=== PATIENT | female | born 1960 | race Caucasian/White ===

== ENCOUNTER 2016-10-10 14:13 | Inpatient (IN) | payer MEDICAID ==
[2016-10-10] MEDS ORDERED: SODIUM CHLORIDE 0.9% 3 ML FLUSH FLUSH PRN (14:34)
[2016-10-10] MEDS ORDERED: REGULAR INSULIN 100 UNITS/ML - 3 ML VIAL IV ONE (14:35)
[2016-10-10] MEDS ORDERED: PANTOPRAZOLE 40 MG VIAL IV ONE (14:46)
--- NOTE | 2016-10-10 14:49 | EDPRACDOC ---
- General Information Information Source: Patient Mode Of Arrival: Ambulance - History of Present Illness Onset: last night Exact Onset of Symptoms: Unknown HPI: Patient has not been feeling well for a few days - states nausea/vomiting today , BS reading "high" on meter. Patient reports she uses an insulin pump without reduction of her sugars. Patient reports ongoing diarrhea which is chronic. Reports generalized abdominal pain. No fever. Reports "doesn't feel good". Symptoms Started: Reports: Gradually Weakness: Bilateral: Generalized Associated signs and symptoms:: Reports: GI Bleed, Diarrhea, Nausea, Vomiting <Bianka Constantino - Last Filed: 10/10/16 15:12> <Jeni Lim - Last Filed: 10/10/16 16:02> - General Information Chief Complaint: Generalized Weakness Stated Complaint: HYPERGLYCEMIA Time Seen by Provider: 10/10/16 14:22 Home Medications: Home Medications Ergocalciferol (Vitamin D2) [Vitamin D2] 50,000 unit PO SUMO PRN 11/17/12 Escitalopram Oxalate [Lexapro] 10 tab PO HS 11/17/12 Estrogens [Premarin] 0.3 mg PO HS 11/17/12 Insulin Pump Novolog 0 units SQ .CONTINUOUS 11/08/14 Oxycodone HCl/Acetaminophen [Percocet 10-325 mg Tablet] 1 tab PO Q6H PRN Loperamide HCl [Imodium] 2 mg PO DIR PRN 12/18/14 Nitroglycerin Sublingual Tab [NTG (NitroStat Sublingual Tab)] 0.4 mg SL Q5MX3 PRN 12/18/14 Alendronate Sodium [Fosamax] 70 mg PO .QMONDAY 06/03/16 Carvedilol [Coreg] 25 mg PO HS 06/03/16 Diclofenac Sodium [Voltaren 1% Topical Gel] 0 gm TOP QID PRN 06/03/16 Febuxostat [Uloric] 80 mg PO QAM 06/03/16 Losartan Potassium [Cozaar] 25 mg PO QAM 06/03/16 Polysorbate 80/Glycerin [Refresh Dry Eye Therapy Drops] 1 drop OU TID PRN Simvastatin [Zocor] 10 mg PO HS 06/03/16 Allergies/Adverse Reactions: Allergies Allergy/AdvReac Type Severity Reaction Status Date / Time duloxetine HCl Allergy Unknown Nausea/Vomi Verified 06/03/16 12:35 [From Cymbalta] ting NSAIDS (Non-Steroidal AdvReac Unknown See Verified 06/03/16 12:35 Anti-Inflamma Comments ED Past Medical History - History Reviewed Yes Nurses notes reviewed and agree except as marked - Patient Medical History Cardiac History: Reports: Coronary Artery Disease, Hypertension, Congestive Heart Failure, Heart Attack (2006), Cardiac Catheterization (2012?), CABG (2006 Quad), Hypercholesterolemia, Syncope GI/ History: Reports: Renal Disease (STAGE 3) Musculoskeletal History: Reports: Arthritis Psychological History: Denies: Depression Systemic History: Reports: Cancer, Anemia (Iron Deficit), Diabetes Surgical History: Reports: Cholecystectomy, CABG (2006 Quad), Cardiac Catheterization (2012?), Tonsillectomy/Adnoidectomy - Family Medical History Reports: Hypertension (Mother,Father,Brothers), Diabetes (Mother), Cancer ( BROTHER COLON CA), Stroke (Mother), Cardiac Disorders (Brother) - Social Medical History Smoking Status: Former smoker ETOH: None Substance Abuse: None Lives In: Home <Bianka Constantino - Last Filed: 10/10/16 15:12> EDM Review of Systems - Review of Systems ROS Negative Except as Marked: Yes All systems reviewed and were negative except as marked Constitutional: Fatigue, Weakness Eyes: No Symptoms Reported Ears: No Symptoms Reported Throat: No Symptoms Reported Nose: No Symptoms Reported Respiratory: No Symptoms Reported Cardiovascular: No Symptoms Reported Gastrointestinal: Diarrhea, Nausea, Pain, Vomiting Genitourinary: No Symptoms Reported Neurological: Weakness Musculoskeletal: No Symptoms Reported <Bianka Constantino - Last Filed: 10/10/16 15:12> - Physical Exam Constitutional: Alert (Awake), No apparent distress Oriented to: Time, Person, Place Last recorded Vital Signs: Last Vital Signs Temp 98.1 F 10/10/16 14:15 Pulse 89 10/10/16 14:39 Resp 18 10/10/16 14:39 BP 191/79 H 10/10/16 14:39 Pulse Ox 100 10/10/16 14:39 Oxygen Pulse Oxygen Saturation 100 O2 Device Room Air Oxygen Flow Rate Fraction of Inspired Oxygen ( FIO2) - HEENT Head: Normal ( normocephalic) Eye Exam: Normal (PERRL, EOMI, Sclera white) Oropharynx: Membranes Dry Tympanic Membrane: Normal Nose: No Symptoms Reported (septum midline) Neck: Normal (FROM, trachea at midline) - Respiratory/Cardiovascular Respiratory: Normal - CTA (BBS clear to auscultation without adventitious sounds ) Cardiovascular: Normal (RRR without murmur, gallop or rub) - GI Auscultation: Normal (NABS) Tenderness: Diffuse, Mild Ramirez's Sign: Negative Rectal Exam: Heme negative stool GI Comment: Gastroccult + - Musculoskeletal Back: Normal (Non-Tender) Extremities: Normal (Normal tone, Pulses 2+ No cyanosis or edema, FROM) - Integumentary Skin: Normal, Warm, Dry Lymphatics: Normal (no adenopathy) - Neurologic Memory Impaired: Normal Motor Function: Normal (Normal tone, Pulses 2+ No cyanosis or edema, FROM) Mood Description: Normal Thought: Coherent <Bianka Constantino - Last Filed: 10/10/16 15:12> - Physical Exam Last recorded Vital Signs: Last Vital Signs Temp 98.1 F 10/10/16 14:15 Pulse 93 10/10/16 15:17 Resp 18 10/10/16 15:17 BP 168/65 10/10/16 15:17 Pulse Ox 99 10/10/16 15:17 Oxygen Pulse Oxygen Saturation 99 O2 Device Room Air Oxygen Flow Rate Fraction of Inspired Oxygen ( FIO2) <Jeni Lim - Last Filed: 10/10/16 16:02> NIH Stroke Scale Initial Evaluation Level of Consciousness: Alert LOC- Question: Answers Both Correctly LOC Commands: Both Task Correctly Best Gaze: Normal Visual: No Visual Loss Facial Palsy: Normal Movement Motor Arm LEFT: No Drift Motor Arm RIGHT: No Drift Motor Leg LEFT: No Drift Motor Leg RIGHT: No Drift Sensory: Normal Best Language: No Aphasia Dysarthria: Normal Extinction and Inattention: No Abnormality (Neglect) <Bianka Constantino - Last Filed: 10/10/16 15:12> - Results 10/10/16 14:35 10/10/16 14:35 POC Capillary Glucose > 600 MG/DL (70-99) H* 10/10/16 14:24 Lab Results 10/10/16 14:24 POC Capillary Glucose > 600 H* <Bianka Constantino - Last Filed: 10/10/16 15:12> - Re-evaluation Re-evaluation 1 Re-evaluation Time: 16:00 (IMPROVED) - Results 10/10/16 14:35 10/10/16 14:35 WBC 10.7 xk/uL (3.8-10.8) 10/10/16 14:35 RBC 4.11 xM/uL (4.20-5.40) L 10/10/16 14:35 Hgb 11.9 g/dL (12.0-16.0) L 10/10/16 14:35 Hct 38.0 % (36-47) 10/10/16 14:35 MCV 92 fL (81-99) 10/10/16 14:35 MCH 29.0 pg (27-32) 10/10/16 14:35 MCHC 31.4 g/dl (33-36) L 10/10/16 14:35 RDW 14.6 % (11.5-14.5) H 10/10/16 14:35 Plt Count 216 xk/uL (130-400) 10/10/16 14:35 MPV 8.0 fL (7.4-10.4) 10/10/16 14:35 Neut % (Auto) 83.5 % (45-76) H 10/10/16 14:35 Lymph % (Auto) 9.3 % (17-44) L 10/10/16 14:35 [place] % (Auto) 6.5 % (3-10) 10/10/16 14:35 Eos % (Auto) 0.1 % (0-5) 10/10/16 14:35 Baso % (Auto) 0.6 % (0-2) 10/10/16 14:35 Absolute Neuts (auto) 8.88 xk/uL (1.7-8.2) H 10/10/16 14:35 Absolute Lymphs (auto) 0.96 xk/uL (0.65-4.75) 10/10/16 14:35 PT 10.1 SEC (9.2-11.2) 10/10/16 14:35 INR 1.0 10/10/16 14:35 APTT 23.3 SEC (22-35) 10/10/16 14:35 Puncture Site Left radial 10/10/16 14:34 pH 7.240 pH UNITS (7.35-7.45) L* 10/10/16 14:34 pCO2 24.0 mmHg (35-45) L 10/10/16 14:34 pO2 105.0 mmHg (80-100) H 10/10/16 14:34 HCO3 10.3 MMOL/L (22-26) L 10/10/16 14:34 Total CO2 11.0 MMOL/L (23-27) L 10/10/16 14:34 Base Excess -15.3 (+/- 2) L 10/10/16 14:34 FiO2 % 21 10/10/16 14:34 Specimen Drawn By Dp 10/10/16 14:34 Sodium 130 mEq/L (137-146) L 10/10/16 14:35 Potassium 5.0 mEq/L (3.5-5.1) 10/10/16 14:35 Chloride 91 mEq/L (98-107) L 10/10/16 14:35 Carbon Dioxide 9 mMOL/L (22-33) L* 10/10/16 14:35 BUN 39 MG/DL (7-17) H 10/10/16 14:35 Creatinine 2.30 MG/DL (0.52-1.04) H 10/10/16 14:35 Estimated GFR (MDRD) 22 mL/min (>=60) L 10/10/16 14:35 Glucose 821 MG/DL (70-99) H* 10/10/16 14:35 POC Capillary Glucose > 600 MG/DL (70-99) H* 10/10/16 14:24 Calculated Osmolality 300 MOs/Kg (270-290) H 10/10/16 14:35 Calcium 10.6 MG/DL (8.4-10.2) H 10/10/16 14:35 Total Bilirubin 0.8 MG/DL (0.2-1.3) 10/10/16 14:35 AST 31 IU/L (14-36) 10/10/16 14:35 ALT 41 IU/L (9-52) 10/10/16 14:35 Alkaline Phosphatase 108 IU/L (38-126) 10/10/16 14:35 Creatine Kinase 92 IU/L (30-134) 10/10/16 14:35 Total Protein 7.4 G/DL (6.3-8.2) 10/10/16 14:35 Albumin 4.8 G/DL (3.5-5.0) 10/10/16 14:35 Blood Type A POSITIVE 10/10/16 14:35 Antibody Screen Negative 10/10/16 14:35 Lab Results 10/10/16 10/10/16 10/10/16 14:35 14:35 14:35 WBC RBC Hgb Hct MCV MCH MCHC RDW Plt Count MPV Neut % (Auto) Lymph % (Auto) [place] % (Auto) Eos % (Auto) Baso % (Auto) Absolute Neuts (auto) Absolute Lymphs (auto) PT 10.1 INR 1.0 APTT 23.3 Puncture Site pH pCO2 pO2 HCO3 Total CO2 Base Excess FiO2 % Specimen Drawn By Sodium Potassium Chloride Carbon Dioxide BUN Creatinine Estimated GFR (MDRD) Glucose POC Capillary Glucose Calculated Osmolality Calcium Total Bilirubin AST ALT Alkaline Phosphatase Creatine Kinase 92 Total Protein Albumin Blood Type A POSITIVE Antibody Screen Negative 10/10/16 10/10/16 10/10/16 14:35 14:35 14:34 WBC 10.7 RBC 4.11 L Hgb 11.9 L Hct 38.0 MCV 92 MCH 29.0 MCHC 31.4 L RDW 14.6 H Plt Count 216 MPV 8.0 Neut % (Auto) 83.5 H Lymph % (Auto) 9.3 L [place] % (Auto) 6.5 Eos % (Auto) 0.1 Baso % (Auto) 0.6 Absolute Neuts (auto) 8.88 H Absolute Lymphs (auto) 0.96 PT INR APTT Puncture Site Left radial pH 7.240 L* pCO2 24.0 L pO2 105.0 H HCO3 10.3 L Total CO2 11.0 L Base Excess -15.3 L FiO2 % 21 Specimen Drawn By Dp Sodium 130 L Potassium 5.0 Chloride 91 L Carbon Dioxide 9 L* BUN 39 H Creatinine 2.30 H Estimated GFR (MDRD) 22 L Glucose 821 H* POC Capillary Glucose Calculated Osmolality 300 H Calcium 10.6 H Total Bilirubin 0.8 AST 31 ALT 41 Alkaline Phosphatase 108 Creatine Kinase Total Protein 7.4 Albumin 4.8 Blood Type Antibody Screen 10/10/16 14:24 WBC RBC Hgb Hct MCV MCH MCHC RDW Plt Count MPV Neut % (Auto) Lymph % (Auto) [place] % (Auto) Eos % (Auto) Baso % (Auto) Absolute Neuts (auto) Absolute Lymphs (auto) PT INR APTT Puncture Site pH pCO2 pO2 HCO3 Total CO2 Base Excess FiO2 % Specimen Drawn By Sodium Potassium Chloride Carbon Dioxide BUN Creatinine Estimated GFR (MDRD) Glucose POC Capillary Glucose > 600 H* Calculated Osmolality Calcium Total Bilirubin AST ALT Alkaline Phosphatase Creatine Kinase Total Protein Albumin Blood Type Antibody Screen <Jeni Lim - Last Filed: 10/10/16 16:02> ED Critical Care Note - Critical Care Note Total Time (mins): 30 <Jeni Lim - Last Filed: 10/10/16 16:02> <Bianka Constantino - Last Filed: 10/10/16 15:12> - Departure Yes I personally saw and evaluated the patient. Disposition: Admit IP To This Hospital Education/Counseling Given To: Patient, Family Member Education/Counseling Given Regarding: Diagnosis, Treatment Decision to Admit Time: 16:02 Decision to admit date: 10/10/16 Decision to admit: from ED - Physician Consulted Hospitalist Provider Called: Lauren Lujan <Jeni Lim - Last Filed: 10/10/16 16:02> - Departure Condition: Serious Final Diagnosis: DKA (diabetic ketoacidoses), Acute on chronic renal failure, Nausea and vomiting Instructions: Weakness (General), Managing Diabetes During Sick Days (ED), Diabetes and Exercise, Renal Failure Diet (GEN) Forms: Patient Discharge Instructions, ED Discharge Instructions
[2016-10-10 14:50] LABS: ABG Draw Site Left Radial; ABG Draw Tech DP; ALLEN'S TEST PASS; BEb -15.3 (+/- 2)
[2016-10-10] MEDS: NS 1,000 ML IV SCH ×2 (14:50→15:19)
[2016-10-10] MEDS ORDERED: PANTOPRAZOLE SODIUM 40 MG in NS 100 ML IV SCH (15:00)
[2016-10-10] MEDS ORDERED: Pharmacy Review for Metformin - IV Contrast Given SCH (15:00)
[2016-10-10 15:02] LABS: BLOOD UREA NITROGEN 39 MG/DL (7-17); CALCIUM 10.6 MG/DL (8.4-10.2); CHLORIDE 91 mEq/L (98-107); SODIUM LEVEL 130 mEq/L (137-146); TOTAL PROTEIN 7.4 G/DL (6.3-8.2)
[2016-10-10 15:03] LABS: AUTOMATED BASOPHIL 0.6 % (0-2); AUTOMATED EOSINOPHIL 0.1 % (0-5); AUTOMATED LYMPH 9.3 % (17-44); AUTOMATED MONOCYTE 6.5 % (3-10); AUTOMATED NEUTROPHIL 83.5 % (45-76)
--- NOTE | 2016-10-10 15:19 | DIRPT ---
CLINICAL DATA: Hyperglycemia, nausea and vomiting since last night. EXAM: CHEST 2 VIEW COMPARISON: 06/03/2016 FINDINGS: Sternotomy wires unchanged. Lungs are adequately inflated without consolidation or effusion. Mild stable cardiomegaly. Calcified plaque over the aortic arch. Mild degenerative change of the spine. IMPRESSION: No acute cardiopulmonary disease. Mild stable cardiomegaly. Electronically Signed By: Shawn Doherty M.D. On: 10/10/2016 15:17
[2016-10-10 15:44] LABS: CALCULATED OSMOLALITY 300 MOs/Kg (270-290); PARTIAL THROMB. TIME 23.3 SEC (22-35)
[2016-10-10 15:47] LABS: GLUCOSE 821 MG/DL (70-99)
[2016-10-10 15:56] LABS: WBC/URINE 0-2 (0-5)
[2016-10-10] MEDS: Insulin, Regular 100 UNITS in NS 99 ML IV SCH ×2 (16:03)
[2016-10-10 16:04] LABS: LEUKOCYTES/URINE NEG (NEGATIVE); NITRITE/URINE NEG (NEGATIVE); URINE OCCULT BLOOD NEG (NEG/TRACE)
[2016-10-10] MEDS ORDERED: ACETAMINOPHEN 325 MG/TAB TABLET PO PRN (16:10)
[2016-10-10] MEDS ORDERED: BENZONATATE 100 MG PERLES PO PRN (16:10)
[2016-10-10] MEDS ORDERED: SIMETHICONE 80 MG TAB PO PRN (16:10)
[2016-10-10] MEDS ORDERED: DEXTROSE 25 GM/50 ML PFS IV PRN (16:10)
[2016-10-10] MEDS ORDERED: TEMAZEPAM 15 MG CAP PO PRN (16:10)
[2016-10-10] MEDS ORDERED: METOCLOPRAMIDE 10 MG/2 ML VIAL IV PRN (16:10)
[2016-10-10] MEDS ORDERED: DOCUSATE-SENNA CONCENTRATE TAB PO PRN (16:10)
[2016-10-10] MEDS ORDERED: ACETAMINOPHEN 650 MG SUPP PR PRN (16:10)
[2016-10-10] MEDS ORDERED: NITROGLYCERINE 0.4 MG TAB SL PRN ×2 (16:16→18:31)
[2016-10-10] MEDS ORDERED: [UNRECOGNIZED DRUG - OTHER] OU PRN (16:16)
[2016-10-10] MEDS ORDERED: ARTIFICIAL TEARS OPH SOLN 15 ML OU PRN (16:23)
[2016-10-10] MEDS ORDERED: NS/KCl 20 mEq 1,000 ML IV SCH (17:00)
[2016-10-10] MEDS ORDERED: D5W/NS/KCl 20 mEq 1,000 ML IV SCH (17:00)
[2016-10-10] MEDS ORDERED: NS 1,000 ML IV SCH (17:00)
[2016-10-10] MEDS ORDERED: REGULAR INSULIN 100 UNITS/ML - 3 ML VIAL SQ SCH (17:00)
[2016-10-10] MEDS ORDERED: Insulin, Regular 100 UNITS in NS 99 ML IV SCH ×2 (17:00)
[2016-10-10] MEDS ORDERED: DKA ELECTROLYTE PROTOCOL SCH (17:00)
[2016-10-10] MEDS: SODIUM CHLORIDE 0.9% 3 ML FLUSH FLUSH SCH (17:19)
--- NOTE | 2016-10-10 17:25 | HISTPHYS ---
- Chief Complaint NAUSEA & VOMITING - History of Present Illness Tayler Wise is a 55 year old diabetic with insulin dependent diabetes for over 27 years. She uses an insulin pump, which she has had for ten years. Yesterday she went to visit her son, and noted that her sugar was running a bit high, she programmed the pump for the elevated glucose, but within a few hours it was worse. She had just filled the pump reservoir, and she kept programming it for sugars greater than 600, but within a few hours she developed nausea and vomiting and knew she was going into ketoacidosis. She called her daughter this morning, and her daughter came over and verified that her sugar was too high. They called EMS and had her brought to the ED. Her insulin pump was still full. It appears that the pump was not properly activated, and is no longer working correctly. It may need a new battery, or other repair. The patient's serum glucose was 821 on arrival to the ED. She complained of increased thirst, nausea and vomiting, and blurred vision. She was given a liter of normal saline and 10 units of regular insulin IV in the ED and started on an insulin infusion. She has been referred to the hospitalist service for further evaluation and management. - Medical History Cardiac History: Reports: Coronary Artery Disease, Hypertension, Congestive Heart Failure, Heart Attack (2006), Cardiac Catheterization (2012?), CABG (2006), Hypercholesterolemia, Syncope Respiratory History: Reports: COPD GI/ History: Reports: Renal Disease (STAGE 3), IBD, PMH GI Yes/No Other ( chronic diarrhea) Musculoskeletal History: Reports: Arthritis, Osteoarthritis (DJD hips/knees), Other (osteoporosis) Systemic History: Reports: Cancer, Anemia (Iron Deficit/myelodysplasia), Diabetes Neurological History: Reports: Other (polyneuropathy of diabetes) Psychological History: Reports: No Significant History. Denies: Depression - Surgical History Reports: Cholecystectomy, CABG (2006 Quad), Cardiac Catheterization (2012?), Tonsillectomy/Adnoidectomy, Other (L shoulder, R hand tendon releases, C/ section x2, cataract & retinal surg) - Medictions/Allergies Allergies duloxetine HCl [From Cymbalta] Allergy (Unknown, Verified 06/03/16 12:35) Nausea/Vomiting NSAIDS (Non-Steroidal Anti-Inflamma Adverse Reaction (Unknown, Verified 12:35) See Comments DR. MUSA ORDERED TO AVOID DUE TO RISK OF RENAL TOXICITY (NO DOCUMENTED REACTION) 11-18-12 Current Medication List: Reviewed Home Medications Ergocalciferol (Vitamin D2) [Vitamin D2] 50,000 unit PO SUMO PRN 11/17/12 Escitalopram Oxalate [Lexapro] 10 mg PO HS 11/17/12 Estrogens [Premarin] 0.3 mg PO HS 11/17/12 Insulin Pump Novolog 0 units SQ .CONTINUOUS 11/08/14 Oxycodone HCl/Acetaminophen [Percocet 10-325 mg Tablet] 1 tab PO Q6H PRN Loperamide HCl [Imodium] 2 mg PO DIR PRN 12/18/14 Nitroglycerin Sublingual Tab [NTG (NitroStat Sublingual Tab)] 0.4 mg SL Q5MX3 PRN 12/18/14 Alendronate Sodium [Fosamax] 70 mg PO .QMONDAY 06/03/16 Carvedilol [Coreg] 25 mg PO HS 06/03/16 Diclofenac Sodium [Voltaren 1% Topical Gel] 0 gm TOP QID PRN 06/03/16 Febuxostat [Uloric] 80 mg PO QAM 06/03/16 Losartan Potassium [Cozaar] 25 mg PO QAM 06/03/16 Polysorbate 80/Glycerin [Refresh Dry Eye Therapy Drops] 1 drop OU TID PRN Simvastatin [Zocor] 10 mg PO HS 06/03/16 - Family History Reports: Hypertension (Mother,Father,Brothers), Diabetes (Mother, PGM), Cancer ( BROTHER [place]ON [place]), Stroke (Mother), Cardiac Disorders (brother), Respiratory Disorders (Dad- COPD), Other (Mom- Alzheimer's Dz) - Social History Travel Outside of [place] in the Last 3 Months?: No Lives: Alone Smoking Status: Former smoker (1ppd x 30 yr- quit 2006) Social History: Denies: Alcohol Use, Substance Use Disorder - Review of Systems Constitutional: Fatigue, Loss of Appetite, Weakness, Weight loss. negative: Chills, Fever Eyes: Blurred Vision, Vision Loss, Cataracts, Other (retinal bleed in past) Ears: No Symptoms Reported Nose: No Symptoms Reported Mouth: Dry Mouth, Stomatitis. negative: Poor Dentition (no teeth) Throat/Neck: No Symptoms Reported, Hoarseness Respiratory: Barky Cough, Shortness of Breath. negative: Wheezing Cardiovascular: Palpitations. negative: Chest Pain, Edema Gastrointestinal: Nausea, Vomiting, Diarrhea (chronic), Other (fecal incontinence). negative: Abdominal Pain Genitourinary: Urgency to urinate (urinary incontinence), Postmenopause Neurological: Dizziness, Gait Difficulty, Headache, Numbness, Weakness, Memory Changes Musculoskeletal:: Chronic low back pain, Osteoarthritis, Stiffness, Gout, Weakness, Joint Pain, Swelling Integumentary: No Symptoms Reported Allergic/Immunologic: Itching Hematologic: Anemia Endocrine: No Symptoms Reported, Diabetes Psychiatric: Anxiety, Depression, Insomnia - Physical Exam Vital Signs: Initial Vitals Temperature 98.1 F 10/10/16 14:15 Pulse Rate 93 10/10/16 14:15 Respiratory Rate 18 10/10/16 14:15 Blood Pressure 176/76 10/10/16 14:15 Pulse Oxygen Saturation 100 10/10/16 14:15 Constitutional: Alert, Distress Oriented to: Person, Place - HEENT Head: Other (appears acutely dehydrated) Eye: Normal (PERRL; EOMI) Oropharynx: Membranes Dry, Other (edentulous). negative: Exudate, Red Tympanic Membrane: Dull Nose: No Symptoms Reported. negative: Bleeding, Congestion, Discharge, Deformity Respiratory: Normal - CTA, Diminished, Tachypnea. negative: Retractions, Wheezes Cardiovascular: Tachycardia (mild, regular rhythm and rate, no murmur) - GI Auscultation: Normal Palpation: Normal (soft, nondistended, without mass) Tenderness: Non tender Ramirez's Sign: Negative Rectal Exam: Deferred - Musculoskeletal Back: Normal Extremities: Normal, Pedal Pulse (normal), Radial Pulse (normal). negative: Clubbing, Cyanosis, Edema Spine: full range of motion, normal alignment, normal inspection - Integumentary Skin: Warm, Dry, Other (coarse & scaley) Lymphatics: Normal - Neurologic Memory Impaired: Normal Motor Function: Normal Cranial Nerve: Normal Cerebellar: Normal Mood Description: Appropriate Thought: Coherent Perception: Normal - Focused CV Perfusion Exam Vital Signs: Last Vital Signs Temp 98.1 F 10/10/16 14:15 Pulse 93 10/10/16 16:04 Resp 18 10/10/16 16:04 BP 162/71 10/10/16 16:04 Pulse Ox 100 10/10/16 16:04 - Lab Results Laboratory Tests 10/10/16 10/10/16 10/10/16 14:34 14:35 14:35 WBC 10.7 Hgb 11.9 L Hct 38.0 Plt Count 216 Neut % (Auto) 83.5 H Lymph % (Auto) 9.3 L [place] % (Auto) 6.5 Eos % (Auto) 0.1 PT INR APTT pH 7.240 L* pCO2 24.0 L pO2 105.0 H HCO3 10.3 L Total CO2 11.0 L Base Excess -15.3 L Sodium 130 L Potassium 5.0 Chloride 91 L Carbon Dioxide 9 L* BUN 39 H Creatinine 2.30 H Estimated GFR (MDRD) 22 L Glucose 821 H* Calculated Osmolality 300 H Calcium 10.6 H Total Bilirubin 0.8 AST 31 ALT 41 Alkaline Phosphatase 108 Total Protein 7.4 Albumin 4.8 10/10/16 14:35 WBC Hgb Hct Plt Count Neut % (Auto) Lymph % (Auto) [place] % (Auto) Eos % (Auto) PT 10.1 INR 1.0 APTT 23.3 pH pCO2 pO2 HCO3 Total CO2 Base Excess Sodium Potassium Chloride Carbon Dioxide BUN Creatinine Estimated GFR (MDRD) Glucose Calculated Osmolality Calcium Total Bilirubin AST ALT Alkaline Phosphatase Total Protein Albumin - Diagnostic Findings CXR: FINDINGS: Sternotomy wires unchanged. Lungs are adequately inflated without consolidation or effusion. Mild stable cardiomegaly. Calcified plaque over the aortic arch. Mild degenerative change of the spine. IMPRESSION: No acute cardiopulmonary disease. Mild stable cardiomegaly. Electronically Signed By: Shawn Doherty M.D. On: 10/10/2016 15:17 - Assessment (1) DKA (diabetic ketoacidoses) E13.10 - OTH DIABETES MELLITUS WITH KETOACIDOSIS WITHOUT COMA Acute Present on Admission: Yes Qualifiers: Diabetes mellitus type: type 1 Diabetes mellitus complication detail: without coma Qualified Code(s): E10.10 - Type 1 diabetes mellitus with ketoacidosis without coma ADMIT to ICU: begin aggressive fluid resuscitation and place on insulin infusion. Begin DKA protocol with CBG checks q 1 hr. Patient states she is very brittle, so may need CBG q 30 min if she gets below 200. Use small increments of change. continue until AG is normal per protocol. (2) Acute on chronic renal failure N17.9 - ACUTE KIDNEY FAILURE, UNSPECIFIED; N18.9 - CHRONIC KIDNEY DISEASE, UNSPECIFIED Acute Present on Admission: Yes Begin IV fluid hdration, ice chips for now as patient has been vomiting. She may be able to tolerate diet later. (3) Nausea and vomiting R11.2 - NAUSEA WITH VOMITING, UNSPECIFIED Acute Present on Admission: Yes Antiemetics as needed; treat the underlying cause: DKA. (4) Chronic diarrhea K52.9 - NONINFECTIVE GASTROENTERITIS AND COLITIS, UNSPECIFIED Acute Present on Admission: Yes Probably due to diabetic polyneuropathy involving intestines. Use symptomatic treatment with immodium. (5) Hypertension I10 - ESSENTIAL (PRIMARY) HYPERTENSION Chronic Present on Admission: Yes Qualifiers: Hypertension type: essential hypertension Qualified Code(s): I10 - Essential (primary) hypertension continue usual medications for HTN, monitor BP Case Care Discussed with: Patient, Family, Nursing Staff Total Time: 60 min Critical Care: Yes [place] Time (>50% in counseling/coordination): Yes Code: 291
[2016-10-10 17:58] LABS: BLOOD UREA NITROGEN 36 MG/DL (7-17); CALCIUM 9.1 MG/DL (8.4-10.2); CALCULATED OSMOLALITY 293 MOs/Kg (270-290); CHLORIDE 104 mEq/L (98-107); SODIUM LEVEL 138 mEq/L (137-146)
[2016-10-10 18:00] LABS: GLUCOSE 432 MG/DL (70-99)
[2016-10-10] MEDS ORDERED: Vaccine Screening Complete SCH (18:00)
[2016-10-10] MEDS ORDERED: ENOXAPARIN 30 MG/0.3 ML PFS SQ SCH (18:00)
[2016-10-10] MEDS ORDERED: CARVEDILOL 12.5 MG TAB PO ONE (18:30)
[2016-10-10] MEDS ORDERED: ASPIRIN (CHEWABLE) 81 MG TAB PO ONE (18:30)
[2016-10-10] MEDS: Magnesium Sulfate 2 gm/D5W 2 GM/50 ML RTU IV SCH ×2 (18:35→20:20)
[2016-10-10 20:50] LABS: VENOUS BEb -5.4 (+/- 2); VENOUS TCO2 21.2 MMOL/L (23-27)
[2016-10-10] MEDS: ESTROGENS 0.3 MG TAB PO SCH (21:09)
[2016-10-10] MEDS: ESCITALOPRAM OXALATE 10 MG TAB PO SCH (21:09)
[2016-10-10] MEDS: SIMVASTATIN 10 MG TAB PO SCH (21:09)
[2016-10-10] MEDS: CHLORHEXIDINE (HIBICLENS) 4 OZ BOTTLE TOP SCH (21:12)
[2016-10-10] MEDS: ONDANSETRON HCL 4 MG/2 ML VIAL IV PRN (21:15)
[2016-10-10 21:28] LABS: BLOOD UREA NITROGEN 36 MG/DL (7-17); CALCIUM 9.5 MG/DL (8.4-10.2); CALCULATED OSMOLALITY 285 MOs/Kg (270-290); CHLORIDE 106 mEq/L (98-107); GLUCOSE 211 MG/DL (70-99); SODIUM LEVEL 141 mEq/L (137-146)
[2016-10-10] MEDS: D5W/NS/KCl 20 mEq 1,000 ML IV SCH (22:00)
[2016-10-10] MEDS ORDERED: KCl 10 mEq/100 ml Premix (Run) 10 MEQ/100 ML RTU IV ONE (23:00)
[2016-10-11 00:47] LABS: VENOUS BEb -3.8 (+/- 2); VENOUS TCO2 22.7 MMOL/L (23-27)
[2016-10-11 00:58] LABS: BLOOD UREA NITROGEN 33 MG/DL (7-17); CALCIUM 8.9 MG/DL (8.4-10.2); CALCULATED OSMOLALITY 279 MOs/Kg (270-290); CHLORIDE 109 mEq/L (98-107); GLUCOSE 145 MG/DL (70-99); SODIUM LEVEL 140 mEq/L (137-146)
[2016-10-11] MEDS: Insulin, Regular 100 UNITS in NS 99 ML IV SCH ×2 (03:16)
[2016-10-11] MEDS: PANTOPRAZOLE 40 MG VIAL IV SCH ×2 (03:59→14:00)
[2016-10-11 04:49] LABS: BLOOD UREA NITROGEN 32 MG/DL (7-17); CALCIUM 8.6 MG/DL (8.4-10.2); CALCULATED OSMOLALITY 277 MOs/Kg (270-290); GLUCOSE 123 MG/DL (70-99); SODIUM LEVEL 140 mEq/L (137-146)
[2016-10-11 04:53] LABS: CHLORIDE 111 mEq/L (98-107)
[2016-10-11] MEDS: MORPHINE 2 MG/ML INJECTION IV PRN ×2 (05:28→08:37)
[2016-10-11] MEDS: D5W/NS/KCl 20 mEq 1,000 ML IV SCH (05:29)
[2016-10-11] MEDS: SODIUM CHLORIDE 0.9% 3 ML FLUSH FLUSH SCH ×2 (05:30→17:50)
[2016-10-11 06:34] VITALS: BMI 30.9
[2016-10-11] MEDS: ONDANSETRON HCL 4 MG/2 ML VIAL IV PRN (08:31)
[2016-10-11 08:33] LABS: BLOOD UREA NITROGEN 28 MG/DL (7-17); CALCIUM 8.5 MG/DL (8.4-10.2); CALCULATED OSMOLALITY 283 MOs/Kg (270-290); CHLORIDE 113 mEq/L (98-107); GLUCOSE 164 MG/DL (70-99); SODIUM LEVEL 142 mEq/L (137-146)
[2016-10-11] MEDS: LOSARTAN POTASSIUM 25 MG TAB PO SCH (08:38)
[2016-10-11] MEDS: FEBUXOSTAT 40 MG TABLET PO SCH (08:39)
[2016-10-11] MEDS: CARVEDILOL 25 MG TABLET PO SCH ×2 (08:40→20:49)
[2016-10-11] MEDS: ASPIRIN (CHEWABLE) 81 MG TAB PO SCH (08:40)
[2016-10-11] MEDS ORDERED: FEBUXOSTAT 80 MG PO SCH (09:00)
[2016-10-11] MEDS ORDERED: GLUCAGON 1 MG VIAL SQ PRN (09:31)
[2016-10-11] MEDS ORDERED: GLUCOSE (ORAL GEL) 15 GM TUBE PO PRN (09:31)
[2016-10-11] MEDS ORDERED: DEXTROSE 25 GM/50 ML PFS IV PRN (09:31)
--- NOTE | 2016-10-11 09:34 | GENMEDPROG ---
Chief Complaint: DKA, N&V, DEHYDRATION, OVI, CKD-3, POLYNEUROPATHY Notes Reviewed: Yes Events from last night noted and discussed with Clinical Staff Current Medication List: Reviewed Currently: Denies: CHAIREZ, Tobacco Use/Hx, Alcohol Hx, Nausea and Vomiting, Abdominal Pain, Fever/Chills DVT Prophylaxis: Yes - Physical Examination Vital Signs and I&O: Last Vital Signs Temp 98.2 F 10/11/16 08:00 Pulse 78 10/11/16 09:00 Resp 20 10/11/16 08:00 BP 171/91 10/11/16 09:00 Pulse Ox 97 10/11/16 09:00 Oxygen Pulse Oxygen Saturation 97 O2 Device Room Air Oxygen Flow Rate Fraction of Inspired Oxygen ( FIO2) Intake & Output 10/08/16 10/09/16 10/10/16 10/11/16 23:59 23:59 23:59 23:59 Intake Total 3198 1191 Output Total 725 375 Balance 2473 816 Patient's weight 71.985 kg General: Alert, Oriented x3, Cooperative, No acute distress HEENT: PERRLA, EOMI, Anicteric Sclera, Mucous membr. moist/pink Neck: Full range of motion, Normal Trachea alignment, Normal inspection, No Masses palpable Lymphatics: Normal Respiratory: Normal - CTA, Diminished, Tachypnea. negative: Retractions, Wheezes Cardiovascular: Regular rate and rhythm, Normal S1, Normal S2 GI: Normal bowel sounds, Soft, Non tender, No masses Extremities/Musculoskeletal: DJD, FROM. negative: Edema Skin: Warm,Dry and Intact Neurological: Normal speech, Strength at 5/5 X4 ext, Normal tone Psych/Mental Status: Appropriate, Normal Affect, Cooperative Lab/DI/Studies Reviewed: Laboratory Tests 10/11/16 10/11/16 10/11/16 00:40 04:15 07:42 VBG pH 7.35 Mixed VBG pCO2 39.0 L Mixed VBG pO2 41.0 Mixed VBG HCO3 21.5 L Mixed VBG Total CO2 22.7 L Mixed VBG Base Excess -3.8 L Sodium Potassium Chloride Carbon Dioxide Anion Gap BUN Creatinine Estimated GFR (MDRD) Glucose POC Capillary Glucose 144 H Calculated Osmolality Calcium Magnesium 2.80 H 10/11/16 08:10 VBG pH Mixed VBG pCO2 Mixed VBG pO2 Mixed VBG HCO3 Mixed VBG Total CO2 Mixed VBG Base Excess Sodium 142 Potassium 4.5 Chloride 113 H Carbon Dioxide 20 L Anion Gap 14 BUN 28 H Creatinine 1.70 H Estimated GFR (MDRD) 31 L Glucose 164 H POC Capillary Glucose Calculated Osmolality 283 Calcium 8.5 Magnesium - Assessment (1) DKA (diabetic ketoacidoses) Acute E13.10 - OTH DIABETES MELLITUS WITH KETOACIDOSIS WITHOUT COMA Qualifiers: Diabetes mellitus type: type 1 Diabetes mellitus complication detail: without coma Qualified Code(s): E10.10 - Type 1 diabetes mellitus with ketoacidosis without coma Comment/Plan: DKA has resolved, patien was on insulin pump, but it malfunctioned. Does not know what her baseline insulin requirements are. Will begin with short acting Humalog prior to meals and follow frequent CBG, adjust with sliding scale as needed. No long acting insulin at this time due to renal failure. (2) Acute on chronic renal failure Acute N17.9 - ACUTE KIDNEY FAILURE, UNSPECIFIED; N18.9 - CHRONIC KIDNEY DISEASE, UNSPECIFIED Comment/Plan: Continue IV fluid hydration, patient is feeling better. Appears to have chronic kidney disease -stage 3. (3) Nausea and vomiting Acute R11.2 - NAUSEA WITH VOMITING, UNSPECIFIED Comment/Plan: Antiemetics as needed; nausea has resolved for now. Will advance diet. (4) Chronic diarrhea Acute K52.9 - NONINFECTIVE GASTROENTERITIS AND COLITIS, UNSPECIFIED Comment/ Plan: Probably due to diabetic polyneuropathy involving intestines. Use symptomatic treatment with immodium. (5) Hypertension Chronic I10 - ESSENTIAL (PRIMARY) HYPERTENSION Qualifiers: Hypertension type: essential hypertension Qualified Code(s): I10 - Essential (primary) hypertension Comment/Plan: continue usual medications for HTN, monitor BP Case Care Discussed with: Patient, Family, Nursing Staff Education/Counseling Given To: Patient Education/Counseling Given Regarding: Diagnosis, Treatment, Prognosis
[2016-10-11] MEDS ORDERED: Non-Formulary Medication ITEM (Oxycodone Hcl/Acetaminophen [Percocet 10-325 Mg Tablet] 1 PO PRN (09:43)
[2016-10-11] MEDS ORDERED: INSULIN LISPRO 100 UNITS/ML PEN SQ SCH ×2 (10:00→11:30)
[2016-10-11] MEDS: NS 1,000 ML IV SCH ×3 (10:31→23:36)
[2016-10-11] MEDS ORDERED: INSULIN ASPART 100 UNITS/ML PEN SQ SCH (11:00)
[2016-10-11] MEDS: REGULAR INSULIN 100 UNITS/ML - 3 ML VIAL SQ SCH ×3 (12:37→20:57)
[2016-10-11] MEDS: LOPERAMIDE 2 MG CAP PO SCH ×3 (12:40→23:36)
[2016-10-11 13:20] LABS: BLOOD UREA NITROGEN 27 MG/DL (7-17); CALCIUM 8.1 MG/DL (8.4-10.2); CALCULATED OSMOLALITY 278 MOs/Kg (270-290); CHLORIDE 114 mEq/L (98-107); GLUCOSE 169 MG/DL (70-99); SODIUM LEVEL 140 mEq/L (137-146)
[2016-10-11] MEDS ORDERED: PROMETHAZINE 25 MG/ML VIAL IV PRN (13:39)
[2016-10-11] MEDS ORDERED: PROMETHAZINE 25 MG/ML VIAL ONE (13:40)
[2016-10-11] MEDS: INSULIN ASPART 100 UNITS/ML PEN SQ SCH ×2 (13:52→17:43)
[2016-10-11] MEDS: OXYCODONE HCL 5 MG TABLET PO PRN ×2 (14:01→20:51)
[2016-10-11] MEDS: ENOXAPARIN 40 MG/0.4 ML PFS SQ SCH (17:41)
[2016-10-11] MEDS: CHLORHEXIDINE (HIBICLENS) 4 OZ BOTTLE TOP SCH (20:47)
[2016-10-11] MEDS: ESCITALOPRAM OXALATE 10 MG TAB PO SCH (20:50)
[2016-10-11] MEDS: SIMVASTATIN 10 MG TAB PO SCH (20:50)
[2016-10-11] MEDS: ESTROGENS 0.3 MG TAB PO SCH (20:50)
[2016-10-12] MEDS: PANTOPRAZOLE 40 MG VIAL IV SCH (03:24)
[2016-10-12] MEDS ORDERED: DEXTROSE 25 GM/50 ML PFS IV ONE (05:26)
[2016-10-12] MEDS: NS 1,000 ML IV SCH ×3 (05:32→19:12)
[2016-10-12] MEDS: SODIUM CHLORIDE 0.9% 3 ML FLUSH FLUSH SCH ×2 (06:03→18:20)
[2016-10-12] MEDS: REGULAR INSULIN 100 UNITS/ML - 3 ML VIAL SQ SCH ×5 (06:03→20:28)
[2016-10-12] MEDS: INSULIN ASPART 100 UNITS/ML PEN SQ SCH ×3 (06:04→18:30)
[2016-10-12] MEDS: LOPERAMIDE 2 MG CAP PO SCH ×3 (06:19→18:11)
[2016-10-12] MEDS: ASPIRIN (CHEWABLE) 81 MG TAB PO SCH (09:16)
[2016-10-12] MEDS: FEBUXOSTAT 40 MG TABLET PO SCH (09:16)
[2016-10-12] MEDS: CARVEDILOL 25 MG TABLET PO SCH ×2 (09:44→20:25)
[2016-10-12] MEDS ORDERED: GLUCAGON 1 MG VIAL SQ PRN (11:45)
[2016-10-12] MEDS ORDERED: GLUCOSE (ORAL GEL) 15 GM TUBE PO PRN (11:45)
[2016-10-12] MEDS ORDERED: DEXTROSE 25 GM/50 ML PFS IV PRN (11:45)
[2016-10-12] MEDS ORDERED: Aluminum;Magnesium;Simethicone 30 ML UDC PO PRN (11:47)
--- NOTE | 2016-10-12 11:57 | GENMEDPROG ---
Chief Complaint: UNCONTROLLED DM-1, DIABETIC POLYNEUROPATHY, GERD, CKD-3 Subjective Note: PATIENT HAD MARKED HYPGLYCEMIA THIS MORNING. C/O DYSPHAGIA, DIFFICULTY SWALLOWING. FEELS LIKE FOOD GETS STUCK IN THROAT . Notes Reviewed: Yes Events from last night noted and discussed with Clinical Staff Current Medication List: Reviewed Currently: Denies: CHAIREZ, Tobacco Use/Hx, Alcohol Hx, Nausea and Vomiting, Abdominal Pain, Fever/Chills DVT Prophylaxis: Yes - Physical Examination Vital Signs and I&O: Last Vital Signs Temp 98.0 F 10/12/16 06:00 Pulse 52 L 10/12/16 08:00 Resp 18 10/12/16 06:00 BP 107/67 10/12/16 08:00 Pulse Ox 97 10/12/16 08:00 Oxygen Pulse Oxygen Saturation 97 O2 Device Room Air Oxygen Flow Rate Fraction of Inspired Oxygen ( FIO2) Intake & Output 10/09/16 10/10/16 10/11/16 10/12/16 23:59 23:59 23:59 23:59 Intake Total 3198 3810 1171 Output Total 725 750 Balance 2473 3060 1171 Patient's weight 71.985 kg General: Alert, Oriented x3, Cooperative, No acute distress, Weakness HEENT: PERRLA, EOMI, Anicteric Sclera, Mucous membr. moist/pink Neck: Full range of motion, Normal Trachea alignment, Normal inspection, No Masses palpable Lymphatics: Normal Respiratory: Normal - CTA, Diminished, Tachypnea. negative: Retractions, Wheezes Cardiovascular: Regular rate and rhythm, Normal S1, Normal S2 GI: Normal bowel sounds, Soft, Non tender, No masses Extremities/Musculoskeletal: Normal pulses, DJD, FROM. negative: Edema Skin: Warm,Dry and Intact Neurological: Normal speech, Strength at 5/5 X4 ext, Normal tone, Drowsy Psych/Mental Status: Appropriate, Normal Affect, Cooperative Lab/DI/Studies Reviewed: Laboratory Tests 10/12/16 10/12/16 10/12/16 05:23 05:26 06:02 POC Capillary Glucose 20 L* 21 L* 147 H 10/12/16 11:33 POC Capillary Glucose 222 H - Assessment (1) DKA (diabetic ketoacidoses) Acute E13.10 - OTH DIABETES MELLITUS WITH KETOACIDOSIS WITHOUT COMA Qualifiers: Diabetes mellitus type: type 1 Diabetes mellitus complication detail: without coma Qualified Code(s): E10.10 - Type 1 diabetes mellitus with ketoacidosis without coma Comment/Plan: Using short acting Humalog prior to meals and follow frequent CBG , adjust with sliding scale as needed. Will try small dose of Lantus at HS. (2) GERD (gastroesophageal reflux disease) Acute K21.9 - GASTRO-ESOPHAGEAL REFLUX DISEASE WITHOUT ESOPHAGITIS Qualifiers: Esophagitis presence: with esophagitis Qualified Code(s): K21.0 - Gastro- esophageal reflux disease with esophagitis Comment/Plan: Patient is complaining of dysphagia, feels like food gets stuck in her chest. States it did happen sometimes before hospitalization. May need GI evaluation. Tolerating diet, but not eating much, which is contributing to hypoglycemia. (3) CKD stage 3 due to type 1 diabetes mellitus Acute E10.22 - TYPE 1 DIABETES MELLITUS W DIABETIC CHRONIC KIDNEY DISEASE; N18.3 - CHRONIC KIDNEY DISEASE, STAGE 3 (MODERATE) Comment/Plan: Appears to have chronic kidney disease -stage 3. (4) Hypertension Chronic I10 - ESSENTIAL (PRIMARY) HYPERTENSION Qualifiers: Hypertension type: essential hypertension Qualified Code(s): I10 - Essential (primary) hypertension Comment/Plan: continue usual medications for HTN, monitor BP (5) Chronic diarrhea Acute K52.9 - NONINFECTIVE GASTROENTERITIS AND COLITIS, UNSPECIFIED Comment/ Plan: Probably due to diabetic polyneuropathy involving intestines. Use symptomatic treatment with immodium. (6) Acute on chronic renal failure Acute N17.9 - ACUTE KIDNEY FAILURE, UNSPECIFIED; N18.9 - CHRONIC KIDNEY DISEASE, UNSPECIFIED Comment/Plan: Continue IV fluid hydration, patient is feeling better. Appears to have chronic kidney disease -stage 3. (7) Nausea and vomiting Acute R11.2 - NAUSEA WITH VOMITING, UNSPECIFIED Comment/Plan: Antiemetics as needed; nausea has resolved for now. Patient is complaining of dysphagia, feels like food gets stuck in her chest. States it did happen sometimes before hospitalization. May need GI evaluation. Tolerating diet, but not eating much , which is contributing to hypoglycemia. - Plan Decrease to low-dose SSI, consult GI. Encourage ambulation. Additional Notes: Can move to [facility] if necessary. Case Care Discussed with: Patient, Nursing Staff Education/Counseling Given To: Patient Education/Counseling Given Regarding: Diagnosis, Treatment, Prognosis Total Time: 35 min Critical Care: No Couseling Time (>50% in counseling/coordination): Yes Code: 30609 (12+)
[2016-10-12] MEDS ORDERED: GLARGINE INSULIN (LANTUS) 100 UNITS/ML PEN SQ SCH ×2 (12:00→21:00)
[2016-10-12] MEDS: LOSARTAN POTASSIUM 25 MG TAB PO SCH (13:06)
[2016-10-12] MEDS: METOCLOPRAMIDE 10 MG/2 ML VIAL IV SCH ×2 (13:14→18:12)
[2016-10-12] MEDS: OXYCODONE HCL 5 MG TABLET PO PRN ×2 (14:09→20:24)
[2016-10-12] MEDS: ONDANSETRON HCL 4 MG/2 ML VIAL IV PRN (15:36)
[2016-10-12] MEDS: PANTOPRAZOLE 40 MG TAB PO SCH (18:12)
[2016-10-12] MEDS: ENOXAPARIN 40 MG/0.4 ML PFS SQ SCH (18:12)
[2016-10-12] MEDS: SIMVASTATIN 10 MG TAB PO SCH (20:25)
[2016-10-12] MEDS: ESTROGENS 0.3 MG TAB PO SCH (20:25)
[2016-10-12] MEDS: CHLORHEXIDINE (HIBICLENS) 4 OZ BOTTLE TOP SCH (22:02)
[2016-10-13] MEDS: LOPERAMIDE 2 MG CAP PO SCH ×2 (00:29→05:33)
[2016-10-13] MEDS: METOCLOPRAMIDE 10 MG/2 ML VIAL IV SCH ×2 (00:30→05:34)
[2016-10-13] MEDS: NS 1,000 ML IV SCH (01:35)
[2016-10-13] MEDS: PANTOPRAZOLE 40 MG TAB PO SCH (05:35)
[2016-10-13] MEDS: SODIUM CHLORIDE 0.9% 3 ML FLUSH FLUSH SCH (05:38)
[2016-10-13] MEDS: REGULAR INSULIN 100 UNITS/ML - 3 ML VIAL SQ SCH (05:41)
[2016-10-13 07:02] LABS: BLOOD UREA NITROGEN 18 MG/DL (7-17); CALCULATED OSMOLALITY 274 MOs/Kg (270-290); CHLORIDE 115 mEq/L (98-107); GLUCOSE 159 MG/DL (70-99); SODIUM LEVEL 140 mEq/L (137-146)
[2016-10-13] MEDS: LOSARTAN POTASSIUM 25 MG TAB PO SCH (07:27)
[2016-10-13] MEDS: CARVEDILOL 25 MG TABLET PO SCH (07:27)
[2016-10-13] MEDS: ASPIRIN (CHEWABLE) 81 MG TAB PO SCH (07:27)
[2016-10-13] MEDS: INSULIN ASPART 100 UNITS/ML PEN SQ SCH (07:28)
[2016-10-13 07:37] VITALS: TEMP 98.2
--- NOTE | 2016-10-13 07:53 | PCM.DCS92 ---
- Final/Secondary Discharge Diagnosis (1) DKA (diabetic ketoacidoses) Acute E13.10 - OTH DIABETES MELLITUS WITH KETOACIDOSIS WITHOUT COMA Present on Admission: Yes type 1 without coma E10.10 - Type 1 diabetes mellitus with ketoacidosis without coma Comment: Resolved. Feels well and requests discharge home. DKA due to insulin pump failure. Continue Lantus and Humalog and she will follow up with her primary physician for repair of her insulin pump (2) Acute on chronic renal failure Acute N17.9 - ACUTE KIDNEY FAILURE, UNSPECIFIED; N18.9 - CHRONIC KIDNEY DISEASE, UNSPECIFIED Present on Admission: Yes Comment: Now at baseline. Creatinine 1.5. (3) CKD stage 3 due to type 1 diabetes mellitus Acute E10.22 - TYPE 1 DIABETES MELLITUS W DIABETIC CHRONIC KIDNEY DISEASE; N18.3 - CHRONIC KIDNEY DISEASE, STAGE 3 (MODERATE) Present on Admission: Yes Comment: Appears to have chronic kidney disease -stage 3. (4) GERD (gastroesophageal reflux disease) Acute K21.9 - GASTRO-ESOPHAGEAL REFLUX DISEASE WITHOUT ESOPHAGITIS with esophagitis K21.0 - Gastro-esophageal reflux disease with esophagitis Comment: Feels well. Tolerating p.o.. Follow-up with primary physician (5) Nausea and vomiting Acute R11.2 - NAUSEA WITH VOMITING, UNSPECIFIED Present on Admission: Yes Comment: Resolved. Likely due to DKA. (6) Chronic diarrhea Acute K52.9 - NONINFECTIVE GASTROENTERITIS AND COLITIS, UNSPECIFIED Present on Admission: Yes Comment: Probably due to diabetic polyneuropathy involving intestines. Use symptomatic treatment with immodium. (7) Hypertension Chronic I10 - ESSENTIAL (PRIMARY) HYPERTENSION Present on Admission: Yes essential hypertension I10 - Essential (primary) hypertension Comment: continue usual medications for HTN, monitor BP Discharge Disposition: Home Discharge Condition: Improved Cognitive Discharge Status: Unimpaired Fuctional Discharge Status: Independent Forms: Patient Discharge Instructions, ED Discharge Instructions Physician Follow up/Referrals: Uli Myers MD [NonStaff] - 1-2 weeks Jolene Rubi MD [Ambulatory] - 1-2 weeks New Prescriptions: Insulin Aspart [Novolog] 6 units SQ AC #2 pen Insulin Glargine [Lantus Pen] 12 units SQ HS #2 pen Pantoprazole Sodium [Protonix] 40 mg PO DAILY #30 tab Discharge Home Medication List Ergocalciferol (Vitamin D2) [Vitamin D2] 50,000 unit PO SUMO PRN 11/17/12 [ History Confirmed 10/10/16 Last Taken 10/04/16] Escitalopram Oxalate [Lexapro] 10 mg PO HS 11/17/12 [History Confirmed 10/10/16 Last Taken 10/09/16] Estrogens [Premarin] 0.3 mg PO HS 11/17/12 [History Confirmed 10/10/16 Last Taken 10/09/16] Insulin Pump Novolog 0 units SQ .CONTINUOUS 11/08/14 [History Confirmed Last Taken 10/09/16] Oxycodone HCl/Acetaminophen [Percocet 10-325 mg Tablet] 1 tab PO Q6H PRN [History Confirmed 10/10/16 Last Taken 10/09/16] Loperamide HCl [Imodium] 2 mg PO DIR PRN 12/18/14 [History Confirmed Last Taken 10/09/16] Nitroglycerin Sublingual Tab [NTG (NitroStat Sublingual Tab)] 0.4 mg SL Q5MX3 PRN 12/18/14 [History Confirmed 10/10/16 Last Taken Unknown] Alendronate Sodium [Fosamax] 70 mg PO .QMONDAY 06/03/16 [History Confirmed 10/10 Last Taken 10/04/16] Carvedilol [Coreg] 25 mg PO HS 06/03/16 [History Confirmed 10/10/16 Last Taken 10/09/16] Diclofenac Sodium [Voltaren 1% Topical Gel] 0 gm TOP QID PRN 06/03/16 [History Confirmed 10/10/16 Last Taken 10/09/16] Febuxostat [Uloric] 80 mg PO QAM 06/03/16 [History Confirmed 10/10/16 Last Taken 10/09/16] Losartan Potassium [Cozaar] 25 mg PO QAM 06/03/16 [History Confirmed 10/10/16 Last Taken 10/09/16] Polysorbate 80/Glycerin [Refresh Dry Eye Therapy Drops] 1 drop OU TID PRN [History Confirmed 10/10/16 Last Taken 10/09/16] Simvastatin [Zocor] 10 mg PO HS 06/03/16 [History Confirmed 01/15/17 Last Taken 3 Days Ago] Insulin Aspart [Novolog] 6 units SQ AC #2 pen 10/13/16 [Rx Last Taken Unknown] Insulin Glargine [Lantus Pen] 12 units SQ HS #2 pen 10/13/16 [Rx Last Taken Unknown] Pantoprazole Sodium [Protonix] 40 mg PO DAILY #30 tab 10/13/16 [Rx Last Taken Unknown] O2 Device: Nasal Cannula Oxygen to be used after Discharge: Continuous Diet at Discharge: Diabetic Activity: As Tolerated Call Office For: Worsening Symptoms - DC Summary Notes Hospital Course Note:: Discharge summary on patient named IKER KINGSLEY admitted to [facility] on 10/10/16 by Lauren Lujan MD. Date of discharge is []. Total Time: 45 minutes - Physical Exam Vital Signs: Last Vital Signs Temp 98.2 F 10/13/16 07:00 Pulse 74 10/13/16 07:00 Resp 20 10/13/16 07:00 BP 131/56 L 10/13/16 07:00 Pulse Ox 95 10/13/16 07:00 Oxygen Pulse Oxygen Saturation 95 O2 Device Nasal Cannula Oxygen Flow Rate 1 Fraction of Inspired Oxygen ( FIO2) Constitutional: No apparent distress, Alert, Well nourished, Well appearing Oriented to: Time, Person, Place - HEENT Head: Normal, Other (appears acutely dehydrated) Eye: Normal (PERRL; EOMI) Oropharynx: Membranes Dry, Other (edentulous). negative: Exudate, Red Tympanic Membrane: Dull Nose: No Symptoms Reported. negative: Bleeding, Congestion, Discharge, Deformity - Respiratory/Cardiovascular Respiratory: Normal - CTA, Diminished. negative: Retractions, Wheezes Cardiovascular: Normal - GI Auscultation: Normal Palpation: Normal (soft, nondistended, without mass) Tenderness: Non tender Ramirez's Sign: Negative Rectal Exam: Deferred - Musculoskeletal Back: Normal Extremities: Normal, Pedal Pulse (normal), Radial Pulse (normal). negative: Clubbing, Cyanosis, Edema - Integumentary Skin: Warm, Dry Lymphatics: Normal - Neurologic Memory Impaired: Normal Motor Function: Normal Cranial Nerve: Normal Cerebellar: Normal Mood Description: Normal, Appropriate Thought: Coherent Perception: Normal
[2016-10-13] MEDS: FEBUXOSTAT 40 MG TABLET PO SCH (08:01)
[2016-10-13 09:43] VITALS: BP 119/58; PULSE 84
== END 2016-10-13 10:29 | disposition home or self-care (01) | DRG 919 ==
LOC: ED 14:13 → ICU 16:20
PROVIDERS: ADMIT Family Medicine; ATTEND Hospitalist
PROC: 039C3ZZ Drainage of Left Radial Artery, Percutaneous Approach (ICD-10-PCS; principal; 2016-10-10)
DX: T85.694A Other mechanical complication of insulin pump, initial encounter (principal); E13.10 Other specified diabetes mellitus with ketoacidosis without coma; N17.9 Acute kidney failure, unspecified; E10.22 Type 1 diabetes mellitus with diabetic chronic kidney disease; N18.3 Chronic kidney disease, stage 3 (moderate); I25.810 Atherosclerosis of coronary artery bypass graft(s) without angina pectoris; Z79.4 Long term (current) use of insulin; I12.9 Hypertensive chronic kidney disease with stage 1 through stage 4 chronic kidney disease, or unspecified chronic kidney disease; K21.9 Gastro-esophageal reflux disease without esophagitis; K52.9 Noninfective gastroenteritis and colitis, unspecified; Z95.1 Presence of aortocoronary bypass graft; I50.9 Heart failure, unspecified; I25.2 Old myocardial infarction; E78.00 Pure hypercholesterolemia, unspecified; J44.9 Chronic obstructive pulmonary disease, unspecified; M19.90 Unspecified osteoarthritis, unspecified site; Z85.9 Personal history of malignant neoplasm, unspecified; E10.42 Type 1 diabetes mellitus with diabetic polyneuropathy; Z88.8 Allergy status to other drugs, medicaments and biological substances; Z79.899 Other long term (current) drug therapy; Z87.891 Personal history of nicotine dependence; T38.3X6A Underdosing of insulin and oral hypoglycemic [antidiabetic] drugs, initial encounter
CPT/HCPCS: 36415; 36600; 71020; 80048; 80053; 81001; 82270; 82550; 82803; 82962; 83735; 84100; 84484; 85025; 85610; 85730; 86850; 86900; 86901; 87641; 93005; 96361; 96365; 96366; 96372; 96375; 99283; J1650; J1815; J2270; J2405; J2550; J2765; J3475; J3480; J3490; J7030; J7040; J7060; J7070; S0164; S5561